=== PATIENT | male | born 1955 ===

== ENCOUNTER 2021-06-29 12:06 | Inpatient (IN) ==
[~2021-06-29 12:06] MED LIST: Buffered Lidocaine 1% SYRIN 1 ml INTRADERM ONE; DiMENhydriNATE IV 50 mg/ml 1 ml VIAL IV PUSH ONE; HYDROcodone/ACETAMIN 5/325 mg TAB PO PRN; Lactated Ringers 1000 ml BAG 1,000 ML IV SCH; Metoclopramide 5 MG/ML VIAL (10 mg) IV PRN; Naloxone 0.4 mg VIAL 0.4 mg/ml 1 ml VIAL IV PRN; Ondansetron 4 mg VIAL 2 MG/ML 2 ml VIAL IV PRN; fentaNYL 100 mcg/2 ml 50 MCG/ML VIAL IV PRN
[2021-06-29] MEDS ORDERED: Propofol 10 MG/ML 20 ML BTL ONE ×3 (12:23→16:58)
[2021-06-29] MEDS ORDERED: Lidocaine 2% PF 5 ML VIAL ONE (12:23)
[2021-06-29] MEDS ORDERED: Midazolam 2 mg/2 ml VIAL 1 mg/ml 2 ml VIAL (2 mg) ONE ×2 (12:23→13:04)
[2021-06-29] MEDS ORDERED: fentaNYL 100 mcg/2 ml 50 MCG/ML VIAL ONE ×2 (12:23→13:04)
[2021-06-29] MEDS ORDERED: ceFAZolin 1 GM ADVAN 1 GM ADDV.VIAL IVPB ONE (12:24)
[2021-06-29] MEDS ORDERED: DiMENhydriNATE IV 50 mg/ml 1 ml VIAL ONE (12:26)
[2021-06-29] MEDS ORDERED: Dexamethasone IV 4 MG/ML VIAL 1 ml VIAL ONE ×2 (13:05→13:14)
[2021-06-29] MEDS ORDERED: Bupivacaine 0.5% SDV PF 30ML VIAL ONE (13:06)
[2021-06-29] MEDS ORDERED: Ondansetron 4 mg VIAL 2 MG/ML 2 ml VIAL ONE (13:14)
[2021-06-29] MEDS ORDERED: ROPIVACAINE 5 MG/ML 30 ML BTL (0.5%) ONE (14:52)
[2021-06-29] MEDS ORDERED: EPHEDrine (Pressors) 50 MG/ML VIAL ONE (15:10)
[2021-06-29] MEDS ORDERED: Morphine 2 MG/ML SYRINGE IV PRN (15:51)
[2021-06-29] MEDS ORDERED: diPHENhydraMINE 25 mg TAB PO PRN (15:51)
[2021-06-29] MEDS ORDERED: diPHENhydraMINE IV 50 MG/ML 1 ml VIAL (BENADRYL) IV PRN (15:51)
[2021-06-29] MEDS ORDERED: Ondansetron ODT 4 mg TAB 4 MG TAB PO PRN (15:51)
[2021-06-29] MEDS ORDERED: Lactulose 30 ml UDC PO PRN (15:51)
[2021-06-29] MEDS ORDERED: Magnesium Hydroxide LIQ 30 ML UDC PO PRN (15:51)
[2021-06-29] MEDS ORDERED: Ondansetron 4 mg VIAL 2 MG/ML 2 ml VIAL IV PRN (15:51)
[2021-06-29] MEDS ORDERED: ceFAZolin 1 GM ADVAN 1 GM in NS 0.9% 50 ML 50 ML IVPB SCH (16:00)
[2021-06-29] MEDS: Lactated Ringers 1000 ml BAG 1,000 ML IV SCH (18:58)
[2021-06-29] MEDS: Magnesium Hydroxide LIQ 30 ML UDC PO SCH (20:56)
[2021-06-29] MEDS: ceFAZolin 1 GM ADVAN 1 GM in NS 0.9% 50 ML 50 ML IVPB SCH (22:51)
[2021-06-30] MEDS: Lactated Ringers 1000 ml BAG 1,000 ML IV SCH (05:15)
[2021-06-30] MEDS: ceFAZolin 1 GM ADVAN 1 GM in NS 0.9% 50 ML 50 ML IVPB SCH ×2 (06:32→14:08)
[2021-06-30 06:45] LABS: Calcium 8.4 mg/dL (8.6-10.3); Potassium 4.4 mmol/L (3.5-5.0); eGFR CKD-EPI 96.3 (>60)
[2021-06-30 06:53] LABS: ABS Lymphocytes 0.6 10^3/ul (1.0-4.8); ABS Neutrophils 8.8 10^3/ul (1.5-7.7); Eosinophil % 0.1 %; Hematocrit 31 % (42-52); Hemoglobin 10.5 g/dL (14.0-18.0); Lymphocyte % 5.5 %; Mean Corpuscular HGB Conc 34 g/dL (31-36); Mean Corpuscular Hemoglobin 29 pg (27-31); Mean Corpuscular Volume 86 fL (80-94); Mean Platelet Volume 7.1 fL (7.4-10.4); Platelet Count 282 10^3/uL (150-450); Red Blood Count 3.57 10^6 /uL (4.18-5.48); Red Cell Distribution Width 15 % (10-15); White Blood Count 10.3 10^3/uL (3.5-10.8)
[2021-06-30] MEDS: Magnesium Hydroxide LIQ 30 ML UDC PO SCH (08:39)
[2021-06-30] MEDS ORDERED: Vitamin THERAPEUTIC TAB PO SCH (09:00)
[2021-06-30] MEDS ORDERED: Aspirin EC 81 mg TAB.EC (enteric coated) PO SCH (09:00)
[2021-06-30] MEDS ORDERED: CMCS: Glimepiride 2 mg TAB (NF) PO SCH (09:00)
[2021-06-30 11:14] VITALS: BP 120/71
== END 2021-06-30 15:10 | disposition home or self-care (01) | DRG 470 ==
LOC: AA 12:06 → SSU 19:04
PROVIDERS: ADMIT Orthopaedic Surgery Adult Reconstructive Orthopaedic Surgery; ATTEND Orthopaedic Surgery Adult Reconstructive Orthopaedic Surgery